=== PATIENT | male | born 1935 | race Caucasian/White ===

== ENCOUNTER 2018-10-25 09:43 | Day surgery (SDC) | payer MEDICARE, BC ==
[~2018-10-25] VITALS: Ht 180.3 cm; Wt 86.4 kg
[2018-10-25] MEDS ORDERED: SODIUM CHLORIDE 0.9% 1,000 ML IV SCH ×2 (10:23→12:47)
[2018-10-25 10:26] VITALS: BP 129/72
[2018-10-25] MEDS ORDERED: DIPHENHYDRAMINE 50 MG/ML, 1ML IVPush ONE (10:30)
[2018-10-25] MEDS ORDERED: ENOX60SY4 SC (10:34)
[2018-10-25] MEDS ORDERED: RIVA20TA PO (10:34)
[2018-10-25] MEDS ORDERED: GABA300C10 PO (10:39)
[2018-10-25] MEDS ORDERED: ASPI81TA45 PO (10:39)
[2018-10-25] MEDS ORDERED: AMLO-150 PO (10:39)
[2018-10-25] MEDS ORDERED: NITR0.4T28 SL (10:39)
[2018-10-25] MEDS ORDERED: LEVO100T5 PO (10:39)
[2018-10-25] MEDS ORDERED: SIMV20TA3 PO (10:39)
[2018-10-25] MEDS ORDERED: ISOS30TA8 PO (10:39)
[2018-10-25 11:18] LABS: BASOPHILS # (AUTO) 0.03 x10^3/uL (0-0.1); BASOPHILS % (AUTO) 1 % (0-1); EOSINOPHILS # (AUTO) 0.04 x10^3/uL (0-0.4); EOSINOPHILS % (AUTO) 1 % (1-7); LYMPHOCYTES # (AUTO) 2.06 x10^3/uL (1-3.4); LYMPHOCYTES % (AUTO) 35 % (22-44); MD NO; MEAN CORPUSCULAR HEMOGLOBIN 28.2 pg (27.5-34.5); MEAN CORPUSCULAR HGB CONC 32.5 g/dL (33.2-36.2); MEAN CORPUSCULAR VOLUME 86.9 fL (81-97); MEAN PLATELET VOLUME 8.3 fL (7.4-10.4); MONOCYTES # (AUTO) 0.56 x10^3/uL (0.2-0.8); MONOCYTES % (AUTO) 10 % (2-9); NEUTROPHILS # (AUTO) 3.13 x10^3/uL (1.8-6.8); NEUTROPHILS % (AUTO) 54 % (42-75); PLATELET COUNT 259 x10^3/uL (130-400); RED BLOOD COUNT 5.26 x10^6/uL (4.38-5.82); RED CELL DISTRIBUTION WIDTH 15.9 % (9.4-14.8)
[2018-10-25 11:28] LABS: ANION GAP 4 mmol/L (5-15); CALCIUM 9.1 mg/dL (8.5-10.1); CHLORIDE 109 mmol/L (98-107); CREATININE 1.18 mg/dL (0.7-1.3)
[2018-10-25] MEDS ORDERED: BIVALIRUDIN 250 MG ONE (11:45)
[2018-10-25] MEDS ORDERED: FENTANYL PF 100 MCG/2ML ONE (11:45)
[2018-10-25] MEDS ORDERED: MIDAZOLAM 1 MG/ML, 5ML ONE (11:45)
[2018-10-25] MEDS ORDERED: LIDOCAINE 1%, 20ML ONE (11:47)
== END 2018-10-25 16:21 | disposition home or self-care (01) ==
LOC: CACL 09:43
PROVIDERS: ATTEND Internal Medicine Cardiovascular Disease
DX: I25.10 Atherosclerotic heart disease of native coronary artery without angina pectoris (principal); I10 Essential (primary) hypertension; E78.2 Mixed hyperlipidemia; I70.208 Unspecified atherosclerosis of native arteries of extremities, other extremity; Z79.82 Long term (current) use of aspirin; Z95.1 Presence of aortocoronary bypass graft
CPT/HCPCS: 36415; 80048; 85025; 93459; 99156; C1760; C1769; C1887; C1894; J0583; J2250; J3010; J3490; Q9967